=== PATIENT | female | born 1960 | race Caucasian/White ===

== ENCOUNTER 2022-03-13 19:40 | Emergency (ER) | payer SELFPAY ==
[~2022-03-13] VITALS: Ht 160 cm; Wt 72.6 kg
[2022-03-13 19:56] VITALS: BP_SYST 146
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
--- NOTE | 2022-03-13 20:07 | NUR ---
Patient triaged and placed in ED room #3. VSS and patient appears in no acute distress at this time. Accompanied by daughter. MD Summers notified of need for MSE.
--- NOTE | 2022-03-13 20:08 | NUR ---
Triage report given to YESICA Aguilar.
--- NOTE | 2022-03-13 21:23 | NUR ---
ermd examining pt at bedside
[2022-03-13] MEDS ORDERED: IBUPROFEN 400 MG TABLET PO ONE (21:30)
--- NOTE | 2022-03-13 21:42 | NUR ---
X-ray at bedside
[2022-03-13] MEDS ORDERED: DIPHENHYDRAMINE HCL 50 MG CAPSULE PO ONE (21:45)
--- NOTE | 2022-03-13 22:23 | NUR ---
Patient resting quietly. No acute distress noted. Pt reports feeling less anxious. Pain down to a 4/10. Vital signs within normal range.
[2022-03-13] MEDS ORDERED: NAPR-686 PO (22:58)
[2022-03-13 23:05] VITALS: BP_SYST 127
--- NOTE | 2022-03-13 23:05 | NUR ---
Patient given written and verbal discharge instructions and verbalizes understanding. ER MD discussed with patient the results and treatment provided. Patient in stable condition. ID arm band removed. Rx of NAPROXEN given. Patient educated on pain management and to follow up with PMD. Pain Scale 3/10. Opportunity for questions provided and answered. Medication side effect fact sheet provided.
== END 2022-03-13 23:05 | disposition home or self-care (01) ==
LOC: SED 19:40
DX: S29.9XXA Unspecified injury of thorax, initial encounter (principal); S70.01XA Contusion of right hip, initial encounter; S80.01XA Contusion of right knee, initial encounter; I10 Essential (primary) hypertension; Z79.899 Other long term (current) drug therapy; V43.52XA Car driver injured in collision with other type car in traffic accident, initial encounter; Y93.89 Activity, other specified; Y92.89 Other specified places as the place of occurrence of the external cause; Y99.8 Other external cause status
CPT/HCPCS: 99284; 71045; 73502; 73560; Q0163